=== PATIENT | female | born 1985 ===

== ENCOUNTER 2018-06-03 15:17 | Inpatient (IN) | payer OTHER ==
[~2018-06-03] VITALS: Ht 10.2 cm; Wt 5.0 kg
[2018-06-07] MEDS ORDERED: PRENATAL 19 TA1 EACH PO (11:45)
== END 2018-06-10 10:43 | disposition home or self-care (01) | DRG 832 ==
LOC: OB/GYN 15:17
DX: O24.111 Pre-existing type 2 diabetes mellitus, in pregnancy, first trimester (principal); O23.31 Infections of other parts of urinary tract in pregnancy, first trimester; E11.9 Type 2 diabetes mellitus without complications
CPT/HCPCS: 240

== ENCOUNTER 2018-06-17 13:05 | Outpatient (CLI) | payer OTHER ==
[~2018-06-17 13:05] MED LIST: PRENATAL 19 TA1 EACH PO
== END 2018-06-17 13:13 | disposition home or self-care (01) ==
LOC: SONOGRAMA 13:05
DX: O02.1 Missed abortion (principal)

== ENCOUNTER 2018-06-25 09:45 | Day surgery (SDC) | payer OTHER ==
[~2018-06-25] VITALS: Ht 162.6 cm; Wt 72.1 kg
== END 2018-06-25 18:35 | disposition home or self-care (01) ==
LOC: ER 09:45 → CIR.AMB 11:43
DX: O03.4 Incomplete spontaneous abortion without complication (principal)